=== PATIENT | female | born 1960 | race Caucasian/White ===

== ENCOUNTER 2018-09-16 08:06 | Emergency (ER) | payer MEDICARE, BC ==
[~2018-09-16] VITALS: Ht 165.1 cm; Wt 88.6 kg
[2018-09-16] MEDS ORDERED: LORazepam 2 mg/ml vial IV ONE (08:30)
[2018-09-16] MEDS ORDERED: normal saline 1000ML IV soln IVB ONE (08:30)
[2018-09-16] MEDS ORDERED: metoclopramide 5 mg/ml inj IV ONE (08:30)
[2018-09-16] MEDS ORDERED: dexamethasone sod phosphate 10mg/ml inj IV STA (08:52)
[2018-09-16] MEDS ORDERED: ketorolac trometh. 30mg/ml inj. IV ONE (08:55)
[2018-09-16 09:32] LABS: BASOPHILS # (AUTO) 0.1 X10'3 (0-0.2); BASOPHILS % (AUTO) 1.3 % (0-1); EOSINOPHILS % (AUTO) 0.3 % (0-6); HEMATOCRIT 37.7 % (35.0-45.0); HEMOGLOBIN 12.6 g/dl (12.0-16.0); LYMPHOCYTES # (AUTO) 0.8 X10'3 (1.1-4.8); LYMPHOCYTES % (AUTO) 9.5 % (21-51); MEAN CORPUSCULAR HEMOGLOBIN 28.5 PG (27.0-31.0); MEAN CORPUSCULAR HGB CONC 33.5 g/dL (33.0-36.5); MEAN CORPUSCULAR VOLUME 85.2 FL (78-98); MEAN PLATELET VOLUME 7.5 FL (7.4-10.4); MONOCYTES # (AUTO) 0.2 X10'3 (0-0.9); MONOCYTES % (AUTO) 2.1 % (2-12); NEUTROPHILS # (AUTO) 6.9 X10'3 (1.8-7.7); NEUTROPHILS % (AUTO) 86.8 % (42-75); PLATELET COUNT 276 X10'3 (140-440); RED BLOOD COUNT 4.43 X10'6 (4.20-5.60); RED CELL DISTRIBUTION WIDTH 14.9 % (11.5-14.5); WHITE BLOOD COUNT 7.9 X10'3 (4.5-11.0)
[2018-09-16 09:48] LABS: ALANINE AMINOTRANSFERASE 35 U/L (12-78); ALBUMIN 3.8 G/DL (3.4-5.0); ALKALINE PHOSPHATASE 106 IU/L (46-116); ANION GAP 8 (8-16); ASPARTATE AMINO TRANSFERASE 19 U/L (10-37); BILIRUBIN,TOTAL 0.3 MG/DL (0.1-1.0); BLOOD UREA NITROGEN 12 MG/DL (7-18); BUN/CREATININE RATIO 19.7 (6.6-38.0); CALCIUM 9.4 MG/DL (8.5-10.1); CHLORIDE 105 MMOL/L (99-107); CREATININE 0.61 MG/DL (0.40-0.90); GLUCOSE 119 MG/DL (70-104); POTASSIUM 3.9 MMOL/L (3.5-5.1); SODIUM 139 MMOL/L (135-145); TOTAL CARBON DIOXIDE 26.1 MMOL/L (24-32); TOTAL PROTEIN 7.8 G/DL (6.4-8.2); eGFR > 90 ML/MIN
[2018-09-16] MEDS ORDERED: NO HOME MEDS (11:20)
[2018-09-16 12:34] VITALS: BP 144/66
[2018-09-16] MEDS ORDERED: ONDA4TAB6 PO (12:37)
== END 2018-09-16 12:38 | disposition home or self-care (01) ==
LOC: ER 08:06
DX: G43.909 Migraine, unspecified, not intractable, without status migrainosus (principal); Z88.1 Allergy status to other antibiotic agents
CPT/HCPCS: 36415; 70450; 80053; 85025; 96374; 96375; 99284; J1100; J1885; J2060; J2765; J7030; 99283